=== PATIENT | male | born 1975 | race Caucasian/White ===

== ENCOUNTER 2024-09-11 21:13 | Emergency (ER) | payer SELFPAY ==
[~2024-09-11] VITALS: Ht 177.8 cm; Wt 90.0 kg
[2024-09-11 21:23] VITALS: O2SAT 98
[2024-09-11] MEDS: LORAZEPAM 2MG/ML INJ IM ONE (21:29)
[2024-09-11] MEDS: SODIUM CHLORIDE 0.9% 1,000 ML IV ONE (21:30)
[2024-09-11] MEDS: HALOPERIDOL LACTATE 5MG/ML VIAL IM STA (21:31)
[2024-09-11] MEDS: DIPHENHYDRAMINE 50MG/ML VIAL IM STA (21:34)
[2024-09-11 22:15] LABS: BASOPHILS % 0.5 % (0.0-2.0); EOSINOPHILS % 0.5 % (0.0-5.0); HEMATOCRIT. 39.2 % (42.0-52.0); HEMOGLOBIN. 12.9 g/dL (14.0-18.0); LYMPHOCYTES % 15.6 % (20.0-50.0); MEAN CORPUSCULAR HEMOGLOBIN 30.4 pg (28.0-32.0); MEAN CORPUSCULAR HGB CONC 32.9 g/dL (31.0-37.0); MEAN CORPUSCULAR VOLUME 92.3 fL (80.0-94.0); MONOCYTES % 6.3 % (2.0-8.0); NEUTROPHILS % 77.1 % (40.0-76.0); PLATELET 361 x1000/uL (130-400); RED BLOOD CELL COUNT 4.25 mill/uL (4.7-6.1); RED CELL DISTRIBUTION WIDTH 13.6 % (11.6-14.6); WHITE BLOOD COUNT 11.3 x1000/uL (4.5-11.0)
[2024-09-11 22:25] LABS: CHLORIDE 105 mEq/L (98-107); POTASSIUM 3.9 mEq/L (3.5-5.1); SODIUM 141 mEq/L (136-145)
[2024-09-11 22:26] LABS: CALCIUM 9.4 mg/dL (8.7-10.4); CARBON DIOXIDE 21 mEq/L (21-32)
[2024-09-11 22:31] LABS: CREATININE 1.5 mg/dL (0.6-1.3); GLUCOSE 131 mg/dL (70-105); UREA NITROGEN BLOOD 22 mg/dL (9-23)
[2024-09-11 22:33] LABS: ACETAMINOPHEN < 2 ug/mL (10-30); CREATINE KINASE 368 IU/L (46-171); ETHANOL BLOOD < 10 mg/dL (<10)
[2024-09-12 00:57] VITALS: BP 139/85; PULSE 98; RESP 24; TEMP 37.78080; O2SAT 100
== END 2024-09-12 01:13 | disposition home or self-care (01) ==
LOC: ER 21:13
DX: R41.82 Altered mental status, unspecified (principal); F17.200 Nicotine dependence, unspecified, uncomplicated; F15.90 Other stimulant use, unspecified, uncomplicated; F12.90 Cannabis use, unspecified, uncomplicated; F19.90 Other psychoactive substance use, unspecified, uncomplicated; F10.90 Alcohol use, unspecified, uncomplicated; Y90.9 Presence of alcohol in blood, level not specified
CPT/HCPCS: 80048; 80307; 80329; 80320; 82550; 85025; 36415; 71045; 96360; 96372; 99284; J1200; J1630; J2060; J7030; Z7610; A4606; G0480